=== PATIENT | female | born 1950 | race Caucasian/White ===

== ENCOUNTER 2017-02-05 08:31 | Day surgery (SDC) | payer MEDICARE, OTHER ==
[~2017-02-05] VITALS: Ht 170.2 cm; Wt 72.6 kg
[~2017-02-05 08:31] MED LIST: ALEN70TA2 PO; ATOR20TA PO; CALC-140 PO; CHOL1CRY2 PO; LEVO75TA4 PO; MULT-666 PO; Sodium Chloride LOK Flush 10 mL Syringe IV PRN; fentaNYL-PF 50 mCg/mL 2 mL Inj IVPUSH PRN
[2017-02-05 08:57] VITALS: BP 115/67; PULSE 83; RESP 16; O2SAT 99
[2017-02-05] MEDS: 0.9% Sodium Chloride 1,000 ML IV SCH ×3 (09:41→10:26)
[2017-02-05 10:30] VITALS: BP 106/64; PULSE 64; RESP 14; O2SAT 98
[2017-02-05 10:40] VITALS: BP 113/62; PULSE 61; RESP 14; O2SAT 99
[2017-02-05 10:50] VITALS: BP 109/66; PULSE 61; RESP 16; O2SAT 98
--- NOTE | 2017-02-05 10:57 | ENDO ---
[address] [address] ENDOSCOPY PROCEDURE PATIENT: SHIRLEY MARTEL : 1950 MR#: [id number] ADMIT: 02/05/2017 JOB ID: [id number] DATE: 02/05/2017 PREOPERATIVE DIAGNOSIS(ES): Colorectal cancer screening. POSTOPERATIVE DIAGNOSIS(ES): 1. Transverse colon polyp. 2. Minimal sigmoid diverticulosis. 3. Tortuous colon. PROCEDURE: Colonoscopy to hepatic flexure with snare polypectomy with cautery. SURGEON: Paulo Wu MD. INDICATIONS: A 66-year-old female who has moved here from [facility]. She is here for screening colonoscopy. She thinks she required a barium enema after her last colonoscopy for completion. FINDINGS: She had a fair prep. The scope was advanced to the hepatic flexure. There is marked tortuosity and redundancy of the colon in that region and I could not advance the scope into the ascending colon and clearly not to the cecum. In the proximal transverse colon, there was a proximal 5 mm polyp that was removed with a snare with cautery and retrieved. She had minimal sigmoid diverticulosis. Retroflexed views of the rectum were normal. PROCEDURE: The procedure and sedation plan was discussed with the patient and nursing staff, and a procedural time-out was held. She received 5 mg of Versed and 150 mcg of fentanyl. A digital rectal examination was performed. The Olympus PCF H 180 AL video colonoscope was passed transanally, advanced into the transverse colon, and with marked difficulty and abdominal wall compression, I could not advance the scope beyond the very tortuous and elongated colon in that region. The scope was then withdrawn. Retroflexed views of the rectum were obtained. IMPRESSION: 1. Transverse colon polyp, histology pending. 2. Minimal diverticulosis. 3. Very tortuous colon. PLAN: Barium enema.
--- NOTE | 2017-02-09 14:17 | PATH ---
SURGICAL PATHOLOGY Attending Physician:Stevan Ames CASE STATUS: Signed Out PATIENT NAME: SHIRLEY MARTEL PID: [id number] : 1950 DATE COLLECTED:02/05/2017 17:28 SPECIMEN: Colon, Biopsy CLINICAL HISTORY: 1). TRANSVERSE COLON POLYP FINAL DIAGNOSIS: 1.TRANSVERSE COLON POLYP: POLYPOID FRAGMENT OF BENIGN COLONIC MUCOSA, CONSISTENT WITH HYPERPLASTIC POLYP. EVALUATION LIMITED BY MARKED CAUTERY ARTIFACT. MULTIPLE MICROSCOPIC LEVELS EXAMINED. ICD10 CODE K63.5 GROSS DESCRIPTION: The specimen is received in one formalin filled container labeled with the patient's name, sublabeled "transverse colon polyp" and consists of a 0.3 x 0.3 x 0.2 CM portion of tissue which is entirely submitted in one cassette. 02/05/2017 DAC MICRO DESCRIPTION: See diagnosis. ICD-9 CODES: CPT CODES: 1: 84692 Electronically Signed Out Claire Ramirez MD [facility] Pathology [facility] [address], [place] [address] Technical component performed at [facility], [address] [place] [address] Ave[address], [address]
== END 2017-02-05 23:59 | disposition home or self-care (01) ==
LOC: END 08:31
PROVIDERS: ATTEND Surgery
DX: Z12.11 Encounter for screening for malignant neoplasm of colon (principal); K63.5 Polyp of colon; K57.30 Diverticulosis of large intestine without perforation or abscess without bleeding; E78.5 Hyperlipidemia, unspecified; E03.9 Hypothyroidism, unspecified; R73.03 Prediabetes
CPT/HCPCS: 45385; 99153; G0500; J2250; J3010; J7030